=== PATIENT | male | born 1955 | race African-American/Black ===

== ENCOUNTER 2018-10-12 14:12 | Emergency (ER) | payer OTHER ==
--- NOTE | 2018-10-12 14:32 | Event Note ---
ED Screening Note Date of service: 10/12/18 Time: 14:25 ED Screening Note: was sent from pcp today for elevated BP and proteinuria This initial assessment/diagnostic orders/clinical plan/treatment(s) is/are subject to change based on patients health status, clinical progression and re-assessment by fellow clinical providers in the ED. Further treatment and workup at subsequent clinical providers discretion. Patient/guardian urged not to elope from the ED as their condition may be serious if not clinically assessed and managed. Initial orders include: clonidine ct abdomen labs
[2018-10-12 14:47] LABS: Basophils # (Auto) 0.1 K/mm3 (0.0-0.1); Basophils % (Auto) 0.7 % (0.0-1.8); Eosinophils # (Auto) 0.1 K/mm3 (0.0-0.4); Eosinophils % (Auto) 0.9 % (0.0-4.3); Hematocrit 32.5 % (35.5-45.6); Hemoglobin 11.2 gm/dl (11.8-15.2); Lymphocytes # (Auto) 1.2 K/mm3 (1.2-5.4); Lymphocytes % (Auto) 12.8 % (13.4-35.0); Mean Corpuscular HGB Conc 35 % (32-34); Mean Corpuscular Volume 91 fl (84-94); Monocytes # (Auto) 0.4 K/mm3 (0.0-0.8); Monocytes % (Auto) 4.3 % (0.0-7.3); Platelet Count 239 K/mm3 (140-440); Red Blood Count 3.58 M/mm3 (3.65-5.03)
[2018-10-12 15:02] LABS: Calcium 8.9 mg/dL (8.4-10.2)
[2018-10-12] MEDS ORDERED: HumuLIN R SUB-Q ONE (16:55)
[2018-10-12] MEDS ORDERED: CATAPRES PO ONE (16:55)
--- NOTE | 2018-10-12 17:00 | Emergency Department Report ---
ED General Adult HPI - General Chief complaint: High BP Stated complaint: HIGH BP Time Seen by Provider: 10/12/18 14:24 Source: patient Mode of arrival: Ambulatory Limitations: No Limitations - History of Present Illness Initial comments: Patient is 62 years old male with history of hypertension, diabetes and chronic kidney disease. Patient was sent from his kidney doctor Dr. Corrales for evaluation of elevated blood pressure. Patient initial blood pressure is 215/89. Patient denied any headache, neck pain, weakness numbness or tingling sensation. Patient also denied any chest pain or shortness of breath. Patient given clonidine 0.2 mg. -: This morning - Related Data Previous Rx's Medication Instructions Recorded Last Taken Type metFORMIN [Glucophage] 1,000 mg PO BIDDIAB #60 tablet 02/23/14 Unknown Rx Glimepiride 1 mg PO DAILY #30 tablet 02/24/14 Unknown Rx Glimepiride [Amaryl] 2 mg PO QDDIAB #30 tablet 02/24/14 Unknown Rx Losartan [Cozaar] 50 mg PO QDAY #30 tablet 02/24/14 Unknown Rx Losartan [Cozaar] 50 mg PO QDAY #30 tablet 02/24/14 Unknown Rx Rivaroxaban [Xarelto] 10 mg PO QDAY #10 tab 02/24/14 Unknown Rx metFORMIN [Glucophage] 500 mg PO BIDDIAB #60 tablet 02/24/14 Unknown Rx oxyCODONE /ACETAMINOPHEN [Percocet 1 tab PO Q6H PRN #60 tablet 02/24/14 Unknown Rx 5/325 mg] oxyCODONE /ACETAMINOPHEN [Percocet 1 tab PO Q6HR PRN #30 tablet 02/24/14 Unknown Rx 5/325 mg] Allergies Allergy/AdvReac Type Severity Reaction Status Date / Time No Known Allergies Allergy Verified 02/20/14 19:40 ED Review of Systems ROS: Stated complaint: HIGH BP Other details as noted in HPI Comment: All other systems reviewed and negative Constitutional: denies: chills, fever Respiratory: denies: cough, shortness of breath, SOB with exertion Cardiovascular: denies: chest pain, palpitations Gastrointestinal: denies: abdominal pain, nausea, vomiting, diarrhea, constipation, hematemesis, melena, hematochezia Musculoskeletal: denies: back pain ED Past Medical Hx - Past Medical History Previous Medical History?: Yes Hx Hypertension: Yes Hx Heart Attack/AMI: No Hx Diabetes: Yes (does not take medicines) Hx Liver Disease: Yes (HEPATITIS B-DX 09/2018) Hx Renal Disease: Yes (RI- WITH LESION ON RIGHT KIDNEY) Hx Seizures: No Hx Asthma: No - Surgical History Past Surgical History?: Yes Additional Surgical History: hip surgery - Social History Smoking Status: Never Smoker Substance Use Type: None - Medications Home Medications: Home Medications Medication Instructions Recorded Confirmed Last Taken Type metFORMIN [Glucophage] 1,000 mg PO BIDDIAB #60 tablet 02/23/14 Unknown Rx Glimepiride 1 mg PO DAILY #30 tablet 02/24/14 Unknown Rx Glimepiride [Amaryl] 2 mg PO QDDIAB #30 tablet 02/24/14 Unknown Rx Losartan [Cozaar] 50 mg PO QDAY #30 tablet 02/24/14 Unknown Rx Losartan [Cozaar] 50 mg PO QDAY #30 tablet 02/24/14 Unknown Rx Rivaroxaban [Xarelto] 10 mg PO QDAY #10 tab 02/24/14 Unknown Rx metFORMIN [Glucophage] 500 mg PO BIDDIAB #60 tablet 02/24/14 Unknown Rx oxyCODONE /ACETAMINOPHEN [Percocet 1 tab PO Q6H PRN #60 tablet 02/24/14 Unknown Rx 5/325 mg] oxyCODONE /ACETAMINOPHEN [Percocet 1 tab PO Q6HR PRN #30 tablet 02/24/14 Unknown Rx 5/325 mg] ED Physical Exam - General Limitations: No Limitations General appearance: alert, in no apparent distress - Head Head exam: Present: atraumatic, normocephalic, normal inspection - Eye Eye exam: Present: normal appearance - ENT ENT exam: Present: normal exam, normal orophraynx, mucous membranes moist - Neck Neck exam: Present: normal inspection, full ROM. Absent: tenderness, meningismus, lymphadenopathy, thyromegaly - Respiratory Respiratory exam: Present: normal lung sounds bilaterally - Cardiovascular Cardiovascular Exam: Present: regular rate, normal rhythm, normal heart sounds - GI/Abdominal GI/Abdominal exam: Present: soft, normal bowel sounds. Absent: distended, tenderness, guarding, rebound, rigid, organomegaly, mass, bruit, pulsatile mass, hernia - Extremities Exam Extremities exam: Present: normal inspection, full ROM, normal capillary refill. Absent: pedal edema, calf tenderness - Back Exam Back exam: Present: normal inspection, full ROM. Absent: CVA tenderness (R), CVA tenderness (L) - Neurological Exam Neurological exam: Present: alert, oriented X3, CN II-XII intact - Skin Skin exam: Present: warm, intact, normal color ED Course Vital Signs 10/12/18 10/12/18 10/12/18 14:22 16:54 17:05 Temperature 98.3 F Pulse Rate 89 89 Respiratory 18 Rate Blood Pressure 215/89 203/93 Blood Pressure 203/93 [Left] O2 Sat by Pulse 98 Oximetry 10/12/18 10/12/18 17:52 20:08 Temperature Pulse Rate 87 81 Respiratory 16 18 Rate Blood Pressure Blood Pressure 214/92 170/77 [Left] O2 Sat by Pulse 97 97 Oximetry ED Medical Decision Making - Lab Data Result diagrams: 10/12/18 14:35 10/12/18 14:35 - Medical Decision Making Patient is 62 years old male with history of hypertension, diabetes and chronic kidney disease. Patient was sent from his kidney doctor Dr. Corrales for evaluation of elevated blood pressure. Patient initial blood pressure is 215/89. Patient denied any headache, neck pain, weakness numbness or tingling sensation. Patient also denied any chest pain or shortness of breath. Patient given clonidine 0.2 mg. patient remained asymptomatic in the ER. Patient blood pressure is 171/81. Patient does not want to wait until his pressure normalized. 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 Critical care attestation.: If time is entered above; I have spent that time in minutes in the direct care of this critically ill patient, excluding procedure time. ED Disposition Clinical Impression: Malignant hypertension, Hyperglycemia due to type 2 diabetes mellitus Disposition: -01 TO HOME OR SELFCARE Is pt being admited?: No Condition: Stable Instructions: Hypertension (ED), Diabetes Mellitus Type 2 in Adults (ED) Referrals: DOMINICK GUILLEN MD [Primary Care Provider] - 3-5 Days
[2018-10-12 20:09] VITALS: BP 170/77
== END 2018-10-12 20:20 | disposition home or self-care (01) ==
LOC: ED 14:12
DX: E11.65 Type 2 diabetes mellitus with hyperglycemia (principal); I12.0 Hypertensive chronic kidney disease with stage 5 chronic kidney disease or end stage renal disease; N18.9 Chronic kidney disease, unspecified; E11.22 Type 2 diabetes mellitus with diabetic chronic kidney disease; Z79.84 Long term (current) use of oral hypoglycemic drugs; Z86.19 Personal history of other infectious and parasitic diseases; Z79.899 Other long term (current) drug therapy
CPT/HCPCS: 36415; 80048; 82962; 85025; 96372; J1815